=== PATIENT | male | born 1985 | race Caucasian/White ===

== ENCOUNTER 2023-08-23 13:48 | Outpatient (AMB) | payer OTHER, SELFPAY ==
--- NOTE | 2023-08-23 13:51 | A.OFFPC_ITS ---
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 Care Intake Note: pt is here today for Est Care Allergies amoxicillin Allergy (Intermediate, Verified 08/23/23 14:07) Hives Medication List - Last Reconciled 08/23/23 by RAMEZ Albarado No Known Home Meds Tobacco use date assessed: 08/23/23 Dental Screening Dental Screen Date: 08/23/23 Did you have a dental visit in the last 12 months?: Yes Did you have a dental problem in the last 6 months where you did not have access to dental care?: No Was dental information given to patient?: Patient has dentist HPI HPI Comments History of Present Illness Details Patient is a 38-year-old male here to establish care. He has not had a primary care provider and several years. His last provider was through the [facility]. He has no significant past medical history. He states that he recently visited an urgent care with complaints of rash in his inguinal area, was given an antifungal ointment, and the rash cleared up within a couple of days. 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 [facility] Social History Housing: House Patient Tobacco Use Status: Never used Tobacco e-Cigarette/Vaping Use: Never Used Current occupational status: employed Cognitive needs: No Hearing needs: No Vision needs: No Questionnaire PHQ-9 Over the last 2 weeks, how often have you been bothered by any of the following problems? 1. Little interest or pleasure in doing things: not at all 2. Feeling down, depressed, or hopeless: not at all 3. Trouble falling or staying asleep, or sleeping too much: not at all 4. Feeling tired or having little energy: not at all 5. Poor appetite or overeating: not at all 6. Feeling bad about yourself - or that you are a failure or have let yourself or your family down: not at all 7. Trouble concentrating on things, such as reading the newspaper or watching television: not at all 8. Moving or speaking so slowly that other people could have noticed. Or the opposite - being so fidgety or restless that you have been moving around a lot more than usual: not at all 9. Thoughts that you would be better off or of hurting yourself in some way: not at all Total score: 0 Depression Screening Interpretation: Negative Depression Screening Done: Yes 85418 - PHQ-9 Billing: Yes Source: Developed by Drs. Cristobal Capellan, Stephanie King, Reji Ribera and colleagues, with an educational cade from [employer]. Thrive Questionnaire Date Thrive assessed: 08/23/23 I am a: Patient What is your living situation today?: I have a steady place to live Within the past 12 months, did the food you bought not last and you didn't have the money to get more?: Never true Within the past 12 months, did you worry whether your food would run out before you got money to buy more?: Never true Do you have trouble paying for medicines?: No Do you have trouble getting transportation to medical appointments?: No Do you have trouble paying your heating and electricity bill?: Yes Do you have trouble taking care of your child, family member or friend?: No Do you have trouble with day-to-day activities such as bathing, preparing meals, shopping, managing finances, etc.?: No Are you currently unemployed and looking for a job?: No Are you interested in more education?: Yes AUDIT C Alcohol Use Questionnaire (AUDIT-C) 1. How often do you have a drink containing alcohol?: Never Total Score: 0 RENZO-7 AMB Questionnaire RENZO-7 Date RENZO - 7 assessed: 08/23/23 Feeling nervous, anxious, or on edge: 0 = Not at all Not being able to stop or control worryin = Not at all Worrying too much about different things: 0 = Not at all Trouble relaxin = Not at all Being so restless that it is hard to sit still: 0 = Not at all Becoming easily annoyed or irritable: 0 = Not at all Feeling afraid as if something awful might happen: 0 = Not at all Total RENZO-7 score (0-4 normal; 5-9 mild; 10-14 moderate; 15-21 severe): 0 Source: Developed by Drs. Cristobal Capellan, Stephanie King, Reji Ribera and colleagues, with an educational cade from [employer]. RENZO-7 Assessment Billing RENZO-7 Assessment Tool: RENZO-7 Assessment 88343 Review of Systems Const Details: Constitutional : No Weight loss, No Fever, No Chills, No Fatigue, No Malaise ENT/Mouth : No sore throat, No Rhinorrhea Eyes: No Eye Pain, No Swelling, No Redness Cardiovascular : No Chest Pain, No SOB, No Dyspnea on Exertion, No Orthopnea, No Edema, No Palpitations Respiratory : No Cough, No Sputum, No Wheezing Gastrointestinal : No Nausea, No Vomiting, No Diarrhea, No Constipation, No abdominal Pain, No Hematochezia, No Melena Genitourinary : No Dysuria, No Urinary Frequency, No Hematuria. Recent Fungal infection. Musculoskeletal : No joint pain, No Myalgias, No Joint Swelling Skin : No Skin Lesions, No rash Neuro : No Weakness, No Numbness, No Dizziness, No Headache Psych : No Anxiety/Panic, No Depression Heme/Lymph: No Bruising, No Bleeding,No Lymphadenopathy Endocrine : No Polyuria, No Polydipsia All other systems reviewed and are negative Physical exam (Primary Care) Vital Signs: Last Vital Signs Pulse 60 08/23/23 13:56 BP 120/70 08/23/23 13:56 Pulse Ox 98 08/23/23 13:56 Oxygen Delivery Method Room Air 08/23/23 13:56 Care Plan Goal for BP management: Vital signs reviewed and stable BMI result Body Mass Index 25.7 Tobacco/Smoking Status: Tobacco use Status Tobacco use date assessed 08/23/23 08/23/23 13:52 Patient Tobacco Use Status Never used Tobacco 08/23/23 14:00 e-Cigarette/Vaping Use Never Used 08/23/23 14:00 Depression Screening Interpretation: Negative Const Other: Appearance: Alert.? Oriented X3.? No acute distress.? Eyes: Pupils equal, round and reactive to light.? Neck: Normal inspection.? Neck supple.? CVS: Normal heart rate and rhythm.? Pulses normal.? Respiratory: No respiratory distress.? Breath sounds normal.? Neuro: Oriented X 3.? No motor deficit.? No sensory deficit. CN 2-12 intact Assessment and Plan Assessment & Plan (1) History of tinea cruris: Comment: Patient has been instructed that fungal infections often occur in environments that are warm and with lots of moisture. He should try to wear breathable clothes. He has been educated that he can use [id number] gold Feng to reduce moisture. Patient is agreeable to this plan. Code(s): Z86.19 - Personal history of other infectious and parasitic diseases Plan: Take your medications as prescribed. If you were prescribed antibiotics today, it is important that you take your medication to their entirety, do not skip any doses, do not finish them early. Follow-up with your primary care provider this week. Return to the emergency department with new or worsening symptoms. Such as fevers, chills, chest pain, shortness of breath, nausea, vomiting, dizziness, headache, vision changes, lethargy In case of emergency call 911 Plan Patient will follow-up physical exam in 4-5 months. Coding Level of Care Code Est Pt Level 3 (11353) Diagnoses History of tinea cruris Z86.19 Additional Codes RENZO-7 Assessment Billing - RENZO-7 Assessment Tool: RENZO-7 Assessment 58856 ([id number]) Time Spent (min) 35
[2023-08-23 13:56] VITALS: BP 120/70; PULSE 60; O2SAT 98; BMI 25.7
== END 2023-08-23 14:34 | disposition home or self-care (01) ==
PROVIDERS: PCP Internal Medicine; Visit Provider Nurse Practitioner Primary Care
DX: Z86.19 Personal history of other infectious and parasitic diseases (principal)
CPT/HCPCS: 99212

== ENCOUNTER 2023-09-10 08:57 | Outpatient (REF) | payer OTHER, SELFPAY ==
[2023-09-10 11:11] LABS: MANUAL DIFF FLAG NO
[2023-09-10 11:14] LABS: Appearance Urine Clear; Color Urine Yellow; Glucose Urine UA Negative (Negative); Leukocyte Esterase Urine Negative (Negative); Nitrite Urine Negative (Negative); PH 7.5 (5.0-9.0); Specific Gravity - Urine 1.015 (1.005-1.025); Urine Blood Negative (Negative); Urine Ketones Negative (Negative); Urine Protein Negative (Neg-Trace)
[2023-09-10 11:29] LABS: Basophils Percent Auto 0.4 % (0-2); Eosinophils Absolute Auto 0.1 X10*3/uL (0.0-0.4); Eosinophils Percent Auto 2.4 % (0-4); Hematocrit 44.2 % (42.0-52.0); Hemoglobin 15.1 g/dl (14.0-18.0); Lymphocytes Absolute Auto 1.5 X10*3/uL (1.2-4.9); Lymphocytes Percent Auto 33.4 % (20-40); Mean Corpuscular HGB Conc 34.2 g/dl (31.0-36.0); Mean Corpuscular Hemoglobin 30.1 pg (27.0-33.0); Mean Corpuscular Volume 88.2 fL (80.0-98.0); Mean Platelet Volume 12.9 fL (9.4-12.4); Monocytes Absolute Auto 0.4 X10*3/uL (0.1-1.2); Monocytes Percent Auto 7.8 % (2-11); Neutrophils Absolute Auto 2.5 x10*3/uL (2.0-8.3); Platelet Count 162 X10*3/uL (160-400); Red Blood Count 5.01 X10*6/uL (4.60-5.80); Red Cell Distribution Width 12.7 % (11.0-16.0); White Blood Count 4.5 X10*3/uL (4.8-10.8)
[2023-09-10 12:26] LABS: Vitamin B12 511 pg/mL (200-900)
[2023-09-10 12:29] LABS: Alanine Aminotransferase 41 U/L (0-40); Albumin Level 4.5 g/dL (3.5-5.0); Alkaline Phosphatase 89 U/L (39-117); Anion Gap 11 (12-20); Aspartate Amino Transferase 33 U/L (5-37); Bilirubin Total 0.6 mg/dL (0.0-1.0); Blood Urea Nitrogen 12 mg/dL (9-16); Calcium 9.5 mg/dL (8.4-10.2); Carbon Dioxide 26 mmol/L (22-29); Chloride 106 mmol/L (96-108); Cholesterol 268 mg/dL (<200); Estimated Glomerular Filt Rate > 60; Glucose Random 99 mg/dL (60-115); HDL Cholesterol 50 mg/dL (>40); LDL Cholesterol Calculated 195 mg/dL (<100); Potassium 4.1 mmol/L (3.3-5.1); Sodium 139 mmol/L (135-145); Total Protein 7.7 g/dL (6.5-8.0); Triglycerides 119 mg/dL (<150)
[2023-09-10 13:10] LABS: TSH reflex Free T4 1.47 uIU/mL (0.32-4.0)
[2023-09-14 14:29] LABS: Vitamin D 25-OH, D2 <4 ng/mL; Vitamin D 25-OH, D3 22 ng/mL; Vitamin D 25-OH, Total 22 ng/mL (30-100)
== END 2023-09-10 08:58 | disposition home or self-care (01) ==
LOC: HO.HMGCLDS 08:57
PROVIDERS: PCP Nurse Practitioner Primary Care; Visit Provider Nurse Practitioner Primary Care
DX: Z13.21 Encounter for screening for nutritional disorder (principal); Z13.0 Encounter for screening for diseases of the blood and blood-forming organs and certain disorders involving the immune mechanism; E86.0 Dehydration; E03.9 Hypothyroidism, unspecified; E53.8 Deficiency of other specified B group vitamins; E78.5 Hyperlipidemia, unspecified; Z91.89 Other specified personal risk factors, not elsewhere classified
CPT/HCPCS: 36415; 80053; 80061; 81003; 82306; 82607; 84207; 84443; 85025

== ENCOUNTER 2023-09-19 13:59 | Outpatient (AMB) | payer OTHER, SELFPAY ==
--- NOTE | 2023-09-19 14:00 | MHC.PC.OV ---
Intake Visit Reasons: Discuss Labs ~ Intake Note: pt is here to discuss labs Allergies amoxicillin Allergy (Intermediate, Verified 09/19/23 14:24) Hives Medication List - Last Reconciled 09/19/23 by RAMEZ Albarado atorvastatin 20 mg PO DAILY Tobacco use date assessed: 08/23/23 Dental Screening Dental Screen Date: 09/19/23 Did you have a dental visit in the last 12 months?: Yes Did you have a dental problem in the last 6 months where you did not have access to dental care?: No Was dental information given to patient?: Patient has dentist HPI HPI Comments History of Present Illness Details Patient is a 38-year-old male for a telehealth visit. He was last seen in office 4 weeks ago. He recently had labs drawn which we discussed telehealth appointment today. Patient has elevated cholesterol, LDL of 195, total cholesterol of 268. He denies any instances of chest pain, dizziness, numbness, shortness a breath. Patient has tried previously to bring his cholesterol down with diet and exercise. Will now utilize medication. Patient will be started on 20 mg atorvastatin. We also discussed patient's vitamin D3 level which was 22. Patient can take 2000 units daily vitamin D3 for the next 3 months. [facility] Social History Housing: House Patient Tobacco Use Status: Never used Tobacco e-Cigarette/Vaping Use: Never Used Current occupational status: employed Cognitive needs: No Hearing needs: No Vision needs: No Questionnaire Thrive Questionnaire Date Thrive assessed: 08/23/23 RENZO-7 AMB Questionnaire RENZO-7 Date RENZO - 7 assessed: 08/23/23 Source: Developed by Drs. Cristobal Capellan, Stephanie King, Reji Ribera and colleagues, with an educational cade from [employer]. Review of Systems Const Details: Constitutional : No Weight loss, No Fever, No Chills, No Fatigue, No Malaise ENT/Mouth : No sore throat, No ear pain. Eyes: No Eye Pain, No Swelling, No Redness Cardiovascular : No Chest Pain, No SOB, No Dyspnea on Exertion, No Orthopnea, No Edema, No Palpitations Respiratory : No Cough, No Sputum, No Wheezing Gastrointestinal : No Nausea, No Vomiting, No Diarrhea, No Constipation, No abdominal Pain, No Hematochezia, No Melena Genitourinary : No Dysuria, No Urinary Frequency, No Hematuria, Neuro : No Weakness, No Numbness, No Dizziness, No Headache Psych : No Anxiety/Panic, No Depression Heme/Lymph: No Bruising, No Bleeding,No Lymphadenopathy Endocrine : No Polyuria, No Polydipsia All other systems reviewed and are negative Physical exam (Primary Care) Tobacco/Smoking Status: Tobacco use Status Tobacco use date assessed 08/23/23 09/19/23 14:01 Patient Tobacco Use Status Never used Tobacco 09/19/23 14:01 e-Cigarette/Vaping Use Never Used 09/19/23 14:01 Thrive Assessment: Date of Thrive Assessment Date Thrive assessed 08/23/23 09/19/23 14:01 Telehealth Telehealth Location of provider rendering services: practice address Location of patient: address on file Patient Identification confirmed using: Name, : Yes Telehealth method: voice only Patient verbally consented to treatment: Yes Patient verbally consented to billing insurance company: Yes Patient informed of any privacy concerns related to visit: Yes Minutes spent on Phone/Video with Pt.: 21 Results Reviewed Results Reviewed: Sodium 139 135-145 mmol/L Potassium 4.1 3.3-5.1 mmol/L CL 106 96-108 mmol/L CO2 26 22-29 mmol/L Gap 11 L 12-20 BUN 12 9-16 mg/dL Creat 0.93 0.5-1.4 mg/dL EGFR > 60 NOTE: For -[place]ongolian individuals, multiply the result by 1.210. Chronic Kidney Disease: Estimated GFR < 60 mL/min/1.73m2 Severe Kidney Disease: Estimated GFR < 15 mL/min/1.73m2 Glucose, Random 99 60-115 mg/dL CA 9.5 8.4-10.2 mg/dL Total Bili 0.6 0.0-1.0 mg/dL AST (GOT) 33 5-37 U/L ALT (GPT) 41 H 0-40 U/L Protein, Total 7.7 6.5-8.0 g/dL Alb 4.5 3.5-5.0 g/dL Triglyceride 119 <150 mg/dL Desirable Triglyceride: less than 150 mg/dL Borderline High Triglyceride 150-199 mg/dL High Triglyceride: 200-499 mg/dL Very High Triglyceride: greater than or equal to 5OO mg/dL Cholesterol 268 H <200 mg/dL Desirable Cholesterol: less than 200 mg/dL Borderline High Cholesterol: 200-239 mg/dL High Cholesterol: greater than 239 mg/dL LDL Calculated 195 H <100 mg/dL Desirable LDL: less than 100 mg/dL Near Optimal/Above Optimal LDL: 110-129 mg/dL Borderline High LDL: 130-159 mg/dL High LDL: 160-189 mg/dL Very High LDL: greater than or equal to 190 mg/dL HDL 50 >40 mg/dL Desirable HDL: greater than 40 mg/dL Note: This HDL assay may give artificially low results in patients with liver disease. Alk Phos 89 39-117 U/L TSH 1.47 0.32-4.0 uIU/mL Assessment and Plan Assessment & Plan (1) Hyperlipidemia: Comment: Patient will be started on 20 mg atorvastatin. He has been educated on signs of worsening symptoms and when to report to the office or when to present to the ED. patient is agreeable to this plan Code(s): E78.5 - Hyperlipidemia, unspecified Qualifiers: Hyperlipidemia type: unspecified Qualified Code(s): E78.5 - Hyperlipidemia, unspecified Plan: Take your medications as prescribed. If you were prescribed antibiotics today, it is important that you take your medication to their entirety, do not skip any doses, do not finish them early. Follow-up with your primary care provider this week. Return to the emergency department with new or worsening symptoms. Such as fevers, chills, chest pain, shortness of breath, nausea, vomiting, dizziness, headache, vision changes, lethargy In case of emergency call 911 Plan Follow-up with labs in 3 months. Medications: New atorvastatin 20 mg PO DAILY 90 tabs 0RF Coding Level of Care Code Est Pt Level 3 (27289) Diagnoses Hyperlipidemia, unspecified hyperlipidemia type E78.5 Hyperlipidemia type: unspecified Time Spent (min) 25
== END 2023-09-19 15:19 | disposition home or self-care (01) ==
LOC: HO.HMGC 14:00
PROVIDERS: PCP Nurse Practitioner Primary Care; Visit Provider Nurse Practitioner Primary Care
DX: E78.5 Hyperlipidemia, unspecified (principal)
CPT/HCPCS: 99213

== ENCOUNTER 2024-10-20 11:50 | Outpatient (AMB) | payer OTHER, SELFPAY ==
--- NOTE | 2024-10-20 12:07 | A.OFFPC_ITS ---
Vital Signs 10/20/24 12:08 Height 6 ft 4 in Weight 205 lb BMI 25.0 BP 122/78 Blood Pressure Location Lt brachial Position Sitting Pulse 71 Pulse Source Pulse Oximeter Temp 98.0 F Temp Source Oral Pulse Oximetry (%) 98 Intake Visit Reasons: transfer from [facility] Accompanied by: Self / Same As Patient Allergies atorvastatin Adverse Reaction (Intermediate, Verified 10/20/24 12:49) Abdominal Pain Medication List - Last Reconciled 10/20/24 by Karolina Castillo MD No Known Home Meds Tobacco use date assessed: 10/20/24 Dental Screening Dental Screen Date: 10/20/24 Did you have a dental visit in the last 12 months?: Yes Did you have a dental problem in the last 6 months where you did not have access to dental care?: No Was dental information given to patient?: Patient has dentist HPI transfer from [facility] HPI Details Pt presents for PE. [facility] Surgical History No pertinent past surgical history Family History (Updated 10/20/24 @ 12:41 by Karolina Castillo MD) Mother Diabetes Father No problems noted. 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 1. Little interest or pleasure in doing things: not at all 2. Feeling down, depressed, or hopeless: not at all 3. Trouble falling or staying asleep, or sleeping too much: not at all 4. Feeling tired or having little energy: not at all 5. Poor appetite or overeating: not at all 6. Feeling bad about yourself - or that you are a failure or have let yourself or your family down: not at all 7. Trouble concentrating on things, such as reading the newspaper or watching television: not at all 8. Moving or speaking so slowly that other people could have noticed. Or the opposite - being so fidgety or restless that you have been moving around a lot more than usual: not at all 9. Thoughts that you would be better off or of hurting yourself in some way: not at all Total score: 0 Depression Screening Interpretation: Negative Depression Screening Done: Yes 94733 - PHQ-9 Billing: Yes Source: Developed by Drs. Cristobal Capellan, Stephanie King, Reji Ribera and colleagues, with an educational cade from [employer]. Thrive Questionnaire Date Thrive assessed: 10/20/24 I am a: Patient What is your living situation today?: I have a steady place to live Within the past 12 months, did the food you bought not last and you didn't have the money to get more?: Never true Within the past 12 months, did you worry whether your food would run out before you got money to buy more?: Never true Do you have trouble paying for medicines?: No Do you have trouble getting transportation to medical appointments?: No Do you have trouble paying your heating and electricity bill?: Yes Do you have trouble taking care of your child, family member or friend?: No Do you have trouble with day-to-day activities such as bathing, preparing meals, shopping, managing finances, etc.?: No Are you currently unemployed and looking for a job?: No Are you interested in more education?: Yes Please select the resources that you would like help with: Utilities Currently or been in a relationship where the following occur: No concerns reported THRIVE Score: 1 AUDIT C Alcohol Use Questionnaire (AUDIT-C) 1. How often do you have a drink containing alcohol?: 2-4 times a month 2. How many drinks containing alcohol do you have on a typical day when you are drinking?: 1 or 2 3. How often do you have six or more drinks on one occasion?: Less than monthly Total Score: 3 Score Reviewed/Action Taken: Yes RENZO-7 AMB Questionnaire RENZO-7 Date RENZO - 7 assessed: 10/20/24 Feeling nervous, anxious, or on edge: 0 = Not at all Not being able to stop or control worryin = Not at all Worrying too much about different things: 0 = Not at all Trouble relaxin = Not at all Being so restless that it is hard to sit still: 0 = Not at all Becoming easily annoyed or irritable: 0 = Not at all Feeling afraid as if something awful might happen: 0 = Not at all Total RENZO-7 score (0-4 normal; 5-9 mild; 10-14 moderate; 15-21 severe): 0 Source: Developed by Drs. Cristobal Capellan, Stephanie King, Reji Ribera and colleagues, with an educational cade from [employer]. RENZO-7 Assessment Billing RENZO-7 Assessment Tool: RENZO-7 Assessment 93262 Review of Systems Const All systems reviewed & are unremarkable except as noted in HPI and below Eyes Reports no additional complaints ENT Reports no additional complaints Card Reports no additional complaints Resp Reports no additional complaints GI Reports no additional complaints Reports no additional complaints Musc Reports no additional complaints Physical exam (Primary Care) Vital Signs: Last Vital Signs Temp 98.0 F 10/20/24 12:08 Pulse 71 10/20/24 12:08 BP 122/78 10/20/24 12:08 Pulse Ox 98 10/20/24 12:08 BMI result Body Mass Index 25.0 Tobacco/Smoking Status: Tobacco use Status Tobacco use date assessed 10/20/24 10/20/24 12:14 Patient Tobacco Use Status Never used Tobacco 10/20/24 12:14 e-Cigarette/Vaping Use Never Used 10/20/24 12:14 PHQ-9: PHQ-9 Score PHQ-9: Total score 0 10/20/24 12:14 Depression Screening Interpretation: Negative Thrive Assessment: Date of Thrive Assessment Date Thrive assessed 10/20/24 10/20/24 12:14 Currently or been in a relationship where the following occur: No concerns reported Const General: no acute distress HENMT Head: Yes normal to inspection General nose exam: Normal external nose present Mouth: Normal oral and palatal mucosa present Throat: Yes posterior oropharynx normal Eyes General: appearance normal, both eyes and all related structures Neck Neck: Yes no lymphadenopathy and Yes supple Resp Effort & Inspection: normal respiratory effort Auscultation: clear to auscultation bilaterally Cardio Rhythm: regular rhythm Heart sounds: S1 normal heart sound present and S2 normal heart sound present GI Inspection: Yes normal to inspection Palpation (GI): Soft to palpation Percussion: Yes normal to percussion Auscultation: normal bowel sounds Coding Level of Care Code Est Pt Prev Care 18-39y(46899) Diagnoses Hyperlipidemia, unspecified hyperlipidemia type E78.5 Hyperlipidemia type: unspecified Annual physical exam Z00.00 Additional Codes RENZO-7 Assessment Billing - RENZO-7 Assessment Tool: RENZO-7 Assessment 80629 ([id number]) PHQ-9 - 61223 - PHQ-9 Billing: Yes ([id number]) Assessment & Plan Assessment & Plan (1) Hyperlipidemia: Comment: Atorvastatin stomach upset Code(s): E78.5 - Hyperlipidemia, unspecified Category: Medical Qualifiers: Hyperlipidemia type: unspecified Qualified Code(s): E78.5 - Hyperlipidemia, unspecified Plan: Low-cholesterol diet regular physical activity discussed with the patient , he will return for fasting blood work (2) Annual physical exam: Code(s): Z00.00 - Encounter for general adult medical examination without abnormal findings Category: Medical Plan: Well-balanced diet regular physical activity discussed with the patient Orders: Orders Comprehensive [place]. Panel Fast 1 Month E78.5 - Hyperlipidemia, unspecified, Z00.00 - Encounter for general adult medical examination without abnormal findings Lipid Panel 1 Month E78.5 - Hyperlipidemia, unspecified, Z00.00 - Encounter for general adult medical examination without abnormal findings Complete Blood Count Auto Diff 1 Month E78.5 - Hyperlipidemia, unspecified, Z00.00 - Encounter for general adult medical examination without abnormal findings TSH reflex Free T4 1 Month E78.5 - Hyperlipidemia, unspecified, Z00.00 - Encounter for general adult medical examination without abnormal findings UA w Microscopic 1 Month E78.5 - Hyperlipidemia, unspecified, Z00.00 - Encounter for general adult medical examination without abnormal findings
[2024-10-20 12:08] VITALS: BP 122/78; PULSE 71; TEMP 36.7; O2SAT 98; BMI 25.0
--- OUTSIDE RECORDS SUMMARY | 2024-10-20 13:31 | XMS_ITS | Clinical Summary ---
Author Organization [employer] Address [address] [place] [address] Care Team Providers Care [employer] Name Role Phone Lopez Garibay Primary Care Provider [phone] Allergies No known active allergies Medications montelukast (SINGULAIR) 10 mg tabletIndication s:Allergic state, subsequent encounter TAKE 1 TABLET BY MOUTH EVERY DAY 30 tablet 1 12/22/2019 Active Active Problems No known active problems Family History Medical History Relation Comments Diabetes Mother Relation Status Comments Father Alive Mother Alive Social History Tobacco Use Types Packs/Day Years Used Date Smoking Tobacco: Never Smokeless Tobacco: Never Alcohol Use Standard Drinks/Week Comments Yes 0 (1 standard drink = 0.6 oz pur e alcohol) Sex and Gender Information Value Date Recorded Sex Assigned at Not on file Legal Sex Male 6:33 AM MST Gender Identity Not on file Sexual Orientation Not on file Last Filed Vital Signs Vital Sign Reading Time Taken Comments Blood Pressure 111/65 12/08/2019 10:57 AM EDT Pulse 73 12/08/2019 10:57 AM EDT Temperature 36.8 ??C (98.2 ??F) 12/08/2019 1 0:57 AM EDT Respiratory Rate 18 12/08/2019 10:5 7 AM EDT Oxygen Saturation 98% 12/08/2019 10: 57 AM EDT Inhaled Oxygen Concentration - - Weight 91.1 kg (200 lb 12.8 oz) 020 10:57 AM EDT Height 189.5 cm (6' 2.61 ) 12/08/2019 1 0:57 AM EDT Body Mass Index 25.36 12/08/2019 10:57 AM EDT Plan of Treatment Health Maintenance Due Date Last Done Comments Hepatitis C Screening 1985 PHQ-9 Depression Screen 1997 Annual Preventive Exam 2003 Complete Annual HRA 2003 RENZO-7 Anxiety Screen 2003 DTaP,Tdap,and Td Vaccines (1 - Tdap) 2004 COVID-19 Vaccine (1 - 2023-25 season) 2024 Influenza Vaccine (#1) 2024 RSV Vaccine (SCDM) (1 - 1-dose 75+ series) 2060 Insurance CIG Care Teams [employer] Relationship Specialty Start Date End Date Lopez Garibay PA [address] [place] [id number] PCP - General Family Medicine 12/08/19
== END 2024-10-20 12:50 | disposition home or self-care (01) ==
PROVIDERS: PCP Nurse Practitioner Primary Care; Visit Provider Internal Medicine
DX: E78.5 Hyperlipidemia, unspecified (principal); Z00.00 Encounter for general adult medical examination without abnormal findings

== ENCOUNTER → 2024-10-20 11:50 | Outpatient (BNVA) | payer OTHER, SELFPAY | PROVIDERS: PCP Nurse Practitioner Primary Care; Visit Provider Internal Medicine | DX: Z00.00 Encounter for general adult medical examination without abnormal findings (principal); E78.5 Hyperlipidemia, unspecified | CPT/HCPCS: 96127 ==